=== PATIENT | female | born 1940 | race African-American/Black ===

== ENCOUNTER 2017-10-03 13:46 | Outpatient (CLI) | payer MEDICARE | END 2017-10-03 13:47 | disposition home or self-care (01) | LOC: BICRAD 13:46 | PROVIDERS: ATTEND Internal Medicine | DX: M89.30 Hypertrophy of bone, unspecified site (principal); M19.012 Primary osteoarthritis, left shoulder ==

== ENCOUNTER 2018-10-31 13:52 | Outpatient (CLI) | payer MEDICARE ==
--- NOTE | 2018-10-31 18:36 | BD ---
Exam: DEXA Bone Density 10/31/18 HISTORY: Menopausal screening. Lumbar Spine: BMD (g/cm2) T-SCORE L1 1.215 +2.0 L2 1.342 +2.9 L3 1.318 +2.1 L4 1.426 +3.3 L1-L4 1.331 +2.6 Within normal limits with no increased risk for fracture. Left Femoral Neck: 0.857 +0.1 Total Femur: 1.022 +0.7 Within normal limits with no increased risk for fracture. FRAX score not reported because all T-Score levels above -1.0. POS: [facility]
== END 2018-10-31 13:53 | disposition home or self-care (01) ==
LOC: BICMAMMO 13:52
PROVIDERS: ATTEND Internal Medicine
DX: Z13.820 Encounter for screening for osteoporosis (principal); Z78.0 Asymptomatic menopausal state
CPT/HCPCS: 77080

== ENCOUNTER 2022-01-01 18:31 | Emergency (ER) | payer MEDICARE ==
[2022-01-01] MEDS ORDERED: Meclizine HCl 25 MG TAB ONE (19:02)
[2022-01-01] MEDS ORDERED: Ondansetron ODT 4 MG TAB ONE (19:02)
[2022-01-01 19:08] LABS: #Eosinphils 0.2 thou/uL (0.0-0.7); #Lymphocytes 0.9 thou/uL (1.20-3.40); #Monocytes 0.6 thou/uL (0.11-0.59); #Neutrophils 6.3 thou/uL (1.40-6.50); %Basophils 0.2 % (0.0-1.0); %Eosinophils 3.1 % (0.0-10.0); %Lymphocytes 11.6 % (21.0-51.0); %Monocytes 6.9 % (0.0-10.0); %Neutrophils 78.2 % (42.0-75.0); Hemoglobin 15.2 g/dL (12.0-16.0); Mean Corpuscular HGB CONC 32.3 g/dL (32.0-36.0); Mean Corpuscular Hemoglobin 30.1 pg (27.0-31.0); Mean Corpuscular Volume 93.4 fL (78.0-98.0); Platelet Count 174 thou/uL (130-400); RBC Distribution Width 13.5 % (11.5-14.5); Red Blood Cell (RBC) Count 5.05 mill/uL (4.20-5.40); White Blood Cell (WBC) Count 8.1 thou/uL (4.8-10.8)
[2022-01-01 19:30] LABS: ALT (SGPT) 15 U/L (8-55); AST (SGOT) 25 U/L (5-34); Alkaline Phosphatase 81 U/L (40-110); Anion Gap 13 mmol/L (10-20); BUN (Urea Nitrogen) 13 mg/dL (9.8-20.1); Bilirubin, Total 0.9 mg/dL (0.2-1.2); Calc. Creatinine Clearance 0 mL/min (70-130); Calcium 9.4 mg/dL (7.8-10.44); Carbon Dioxide 24 mmol/L (23-31); Chloride 109 mmol/L (98-107); Estimated GFR 44; Globulin 3.5 g/dL (2.4-3.5); Glucose 99 mg/dL (83-110); Potassium 4.1 mmol/L (3.5-5.1); Protein, Total 7.5 g/dL (5.8-8.1); Sodium 142 mmol/L (136-145)
== END 2022-01-01 20:16 | disposition home or self-care (01) ==
LOC: ERS 18:31
DX: R42 Dizziness and giddiness (principal); R11.2 Nausea with vomiting, unspecified; N18.30 Chronic kidney disease, stage 3 unspecified; I25.10 Atherosclerotic heart disease of native coronary artery without angina pectoris; E03.9 Hypothyroidism, unspecified; E78.5 Hyperlipidemia, unspecified
CPT/HCPCS: 80053; 83605; 84484; 85025; 93005; Q0162

== ENCOUNTER 2022-05-15 15:37 | Outpatient (CLI) | payer MEDICARE | END 2022-05-15 15:38 | disposition home or self-care (01) | LOC: BICRAD 15:37 | PROVIDERS: ATTEND Nurse Practitioner Family | DX: M25.531 Pain in right wrist (principal); M19.031 Primary osteoarthritis, right wrist ==

== ENCOUNTER 2022-11-05 11:44 | Inpatient (IN) | payer MEDICARE ==
[2022-11-05] MEDS ORDERED: Acetaminophen 500 MG TAB ONE (12:42)
[2022-11-05 12:54] LABS: #Eosinphils 0.1 thou/uL (0.0-0.7); #Monocytes 0.5 thou/uL (0.11-0.59); #Neutrophils 6.1 thou/uL (1.40-6.50); %Basophils 0.4 % (0.0-1.0); %Eosinophils 1.5 % (0.0-10.0); %Lymphocytes 7.5 % (21.0-51.0); %Monocytes 7.3 % (0.0-10.0); %Neutrophils 83.2 % (42.0-75.0); Hematocrit 37.3 % (36.0-47.0); Hemoglobin 12.7 g/dL (12.0-16.0); Mean Corpuscular Volume 88.2 fl (78.0-98.0); Mean Platelet Volume 10.9 fL (7.4-10.4); Platelet Count 185 10x3/uL (130-400); RBC Distribution Width 14.5 % (11.5-14.5); Red Blood Cell (RBC) Count 4.23 mill/uL (4.20-5.40); White Blood Cell (WBC) Count 7.4 10x3/uL (4.8-10.8)
[2022-11-05 13:17] LABS: Acetaminophen 12 mcg/mL (10.0-30.0); Alcohol Less than 10.0 mg/dL (Less than 10); Magnesium 1.5 mg/dL (1.6-2.6); Salicylate Less than 8.0 mg/dL (15.0-30.0)
[2022-11-05 13:20] LABS: Troponin I 0.034 ng/mL (< 0.028)
[2022-11-05 13:23] LABS: ALT (SGPT) 18 U/L (8-55); AST (SGOT) 35 U/L (5-34); Albumin 3.6 g/dL (3.4-4.8); Alkaline Phosphatase 58 U/L (40-110); Anion Gap 14 mmol/L (10-20); BUN (Urea Nitrogen) 7 mg/dL (9.8-20.1); CK (CPK) 694 U/L (29-168); Calc. Creatinine Clearance 0 mL/min (70-130); Calcium 9.2 mg/dL (7.8-10.44); Carbon Dioxide 20 mmol/L (23-31); Chloride 111 mmol/L (98-107); Estimated GFR 44; Globulin 2.6 g/dL (2.4-3.5); Glucose 131 mg/dL (83-110); Potassium 2.9 mmol/L (3.5-5.1); Protein, Total 6.2 g/dL (5.8-8.1); Sodium 142 mmol/L (136-145)
[2022-11-05 13:44] LABS: INR-International Normal Ratio 1.2; PTT 29.7 sec (22.9-36.1); Prothrombin Time 15.8 sec (12.0-14.7)
[2022-11-05] MEDS ORDERED: Potassium Chloride 20 MEQ TAB ONE (14:27)
[2022-11-05] MEDS ORDERED: Magnesium 2 GM/50 ML BAG (IN WATER) ONE (14:28)
[2022-11-05 14:40] LABS: Bacteria/HPF 2+ HPF (None Seen); Bilirubin Negative (Negative); Blood, Urine Negative (Negative); CAUTI Indications for Culture Alt mental st,lethar; Clarity Clear (Clear); Glucose, Urine (Dipstick) Normal (Negative); Ketone, Urine Negative (Negative); Leukocyte 250 Leu/uL (Negative); Nitrite Negative (Negative); Protein, Urine (Dipstick) 20 mg/dL (Neg-Trace); RBC/HPF 0-3 HPF (0-3); Specific Gravity, Urine 1.015 (1.002-1.036); Squamous Epithelial 0-3 HPF (0-3); Urobilinogen Normal mg/dL (Less than 2)
[2022-11-05 14:41] LABS: Urine Culture Reflex No No
[2022-11-05 14:46] LABS: Amphetamine Not Detected (NotDetected); Barbiturates Screen Not Detected (NotDetected); Benzodiazepine Screen Detected (NotDetected); Cocaine Metabolite Screen Not Detected (NotDetected); Methadone Not Detected (NotDetected); Methamphetamine Not Detected (NotDetected); Opiate Screen Not Detected (NotDetected); Oxycodone Screen Not Detected (NotDetected); Phencyclidine (PCP) Not Detected (NotDetected); THC/Cannabinoid Screen Not Detected (NotDetected); Tricyclic Screen Not Detected (NotDetected)
[2022-11-05 15:02] LABS: SARS-CoV-2 NAA Rapid Test Not Detected (NotDetected)
[2022-11-05 15:11] LABS: Base Excess -3.1 mEq/L (-2.0 to +3.0); Calcium, Ionized (venous) 1.09 mmol/L (1.16-1.32); Chloride (VBG) 110 mmol/L (98-106); Hematocrit-VBG 40 % (36.0-47.0); Hemoglobin (Hb) 13.6 g/dL (11.7-16.1); Potassium (VBG) 3.07 mmol/L (3.70-5.30); Sodium 143.3 mmol/L (133-146); pH (venous) 7.438 (7.32-7.43)
[2022-11-05] MEDS ORDERED: Senokot S 8.6-50 MG TAB PO PRN (16:22)
[2022-11-05] MEDS ORDERED: Ondansetron ODT 4 MG TAB PO PRN (16:22)
[2022-11-05] MEDS ORDERED: Calcium Carbonate 500 MG ChewTAB PO PRN (16:22)
[2022-11-05] MEDS ORDERED: Acetaminophen 325 MG TAB PO PRN (16:22)
[2022-11-05] MEDS ORDERED: Electrolyte Replacement Protocol 1 EACH FS SCH (16:24)
[2022-11-05] MEDS ORDERED: Lactated Ringer's 1,000 ML IV SCH (16:30)
[2022-11-05 16:42] LABS: Lactic Acid 1.5 mmol/L (0.5-2.2)
[2022-11-05 17:38] VITALS: BMI 26.3
[2022-11-05 18:05] LABS: Troponin I 0.038 ng/mL (< 0.028)
[2022-11-05] MEDS: Famotidine 20 MG TAB PO SCH (20:34)
[2022-11-05 20:58] LABS: Troponin I 0.039 ng/mL (< 0.028)
[2022-11-06 06:06] LABS: #Eosinphils 0.2 thou/uL (0.0-0.7); #Monocytes 0.5 thou/uL (0.11-0.59); %Basophils 0.4 % (0.0-1.0); %Lymphocytes 21.7 % (21.0-51.0); %Monocytes 10.6 % (0.0-10.0); %Neutrophils 63.1 % (42.0-75.0); Hematocrit 35.2 % (36.0-47.0); Hemoglobin 11.8 g/dL (12.0-16.0); Mean Corpuscular HGB CONC 33.5 g/dL (32.0-36.0); Mean Corpuscular Hemoglobin 30.3 pg (27.0-31.0); Mean Corpuscular Volume 90.3 fl (78.0-98.0); Mean Platelet Volume 11.3 fL (7.4-10.4); Platelet Count 136 10x3/uL (130-400); RBC Distribution Width 14.9 % (11.5-14.5); White Blood Cell (WBC) Count 4.7 10x3/uL (4.8-10.8)
[2022-11-06 06:21] LABS: Anion Gap 9 mmol/L (10-20); BUN (Urea Nitrogen) 6 mg/dL (9.8-20.1); Calc. Creatinine Clearance 57 mL/min (70-130); Calcium 8.7 mg/dL (7.8-10.44); Carbon Dioxide 21 mmol/L (23-31); Chloride 115 mmol/L (98-107); Estimated GFR 64; Glucose 81 mg/dL (83-110); Potassium 3.6 mmol/L (3.5-5.1); Sodium 141 mmol/L (136-145)
[2022-11-06] MEDS: Famotidine 20 MG TAB PO SCH (20:26)
[2022-11-07 14:57] VITALS: BP 142/71; TEMP 97.8
[2022-11-07] MEDS ORDERED: LevoFLOXacin 750 mg/D5W 750 MG in Premix Bag 1 BAG IVPB SCH (16:00)
== END 2022-11-07 14:55 | disposition home or self-care (01) | DRG 689 ==
LOC: ERS 11:44 → SURG A 17:04 → OBSVTOIN 11-06 12:11
PROVIDERS: ADMIT Student in an Organized Health Care Education/Training Program; ATTEND Family Medicine
DX: N39.0 Urinary tract infection, site not specified (principal); G93.41 Metabolic encephalopathy; E87.6 Hypokalemia; E83.42 Hypomagnesemia; M19.90 Unspecified osteoarthritis, unspecified site; E03.9 Hypothyroidism, unspecified; I25.10 Atherosclerotic heart disease of native coronary artery without angina pectoris; E78.5 Hyperlipidemia, unspecified; Z20.822 Contact with and (suspected) exposure to COVID-19; N18.30 Chronic kidney disease, stage 3 unspecified; I12.9 Hypertensive chronic kidney disease with stage 1 through stage 4 chronic kidney disease, or unspecified chronic kidney disease; Z95.0 Presence of cardiac pacemaker; Z90.710 Acquired absence of both cervix and uterus; Z90.49 Acquired absence of other specified parts of digestive tract; Z88.2 Allergy status to sulfonamides; Z88.1 Allergy status to other antibiotic agents; Z88.0 Allergy status to penicillin; Z79.899 Other long term (current) drug therapy; Z98.890 Other specified postprocedural states
CPT/HCPCS: 36415; 70450; 71045; 80048; 80053; 80306; 80307; 81001; 82550; 82805; 83605; 83735; 83880; 84443; 84484; 85025; 85610; 85730; 87040; 87086; 93005; G0378; J3475; J7120